=== PATIENT | female | born 2000 | race Caucasian/White ===

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

== ENCOUNTER 2021-11-13 09:33 | Emergency (ER) | payer OTHER, SELFPAY ==
[2021-11-13 09:35] VITALS: BP 99/64; PULSE 87; RESP 16; TEMP 36.3; O2SAT 99; BMI 21.0
--- NOTE | 2021-11-13 09:47 | CT_ITS ---
STUDY: CT SOFT TISSUE NECK WITH CONTRAST REASON FOR EXAM: Female, 21 years old. Pharyngitis. 3 day history of the enlarged cervical lymph nodes. RADIATION DOSAGE (If Supplied By Facility): CTDIvol = ( 10.92 ) mGy, DLP = ( 308.15 ) mGycm TECHNIQUE: The patient was scanned in a multi-detector CT scanner. High resolution transaxial imaging was performed following intravenous administration of IV 75mL [id number]-300. Sagittal and coronal images were reconstructed. Individualized dose optimization techniques were used for this CT. COMPARISON: None. FINDINGS: Normal bilateral parotid glands. 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 Normal bilateral parapharyngeal spaces. Normal bilateral carotid spaces. Normal bilateral sublingual and submandibular glands and spaces. Normal visualized nasopharynx. Normal retropharyngeal space. Normal perivertebral space. There is evidence of enlargement of the palatine tonsils bilaterally in keeping with tonsillitis. Narrowing of the oropharyngeal airway. There is slight image degradation due to patient movement although I suspect a 1.1 cm x 1.5 cm area of decreased attenuation in the deep aspect of the left tonsils as well as a similar appearing hypodensity in the deep aspect of the right tonsil measuring 1 cm x 0.8 cm. The visualized tongue, tongue base and oropharynx are normal. The visualized cervical lymph nodes (levels I-) are within normal size limits, and maintain normal morphology. There is no demonstrated solid or cystic mass lesion. There is no abnormal contrast enhancement. Normal epiglottis, bilateral vallecula and hypopharynx. The pre-epiglottic and paraglottic adipose spaces are normal. Normal visualized bilateral piriform sinuses, aryepiglottic folds, vocal cords, and arytenoid-cricoid articulations. Normal subglottic trachea. Normal bilateral lobes of the thyroid gland. Normal visualized pulmonary apices. Normal visualized paranasal sinuses. Normal visualized cervical spine. CT/Soft Tissue Neck WITH Contrast IMPRESSION: Findings suggestive of a bilateral pharyngeal tonsillitis with a possible early phlegmon formation deep to the tonsillar tissue. There is narrowing of the oropharyngeal airway Electronically Signed: Shar Joya MD at 10:32 EDT ,
--- NOTE | 2021-11-13 09:48 | EX.ED.DYSGE1 ---
HPI History of Present Illness Chief Complaint: General Illness Informant: patient and parent Onset/Context/Timing Onset: Days Context: Gradual Onset Current Severity: Moderate Maximum Severity: Moderate Narrative Narrative: Patient presents secondary to sore throat. She was ill with similar symptoms about a month ago. Recovered from that illness but then developed recurrent symptoms 2 days ago. She is been seen at the [facility] urgent care the past 2 days and had negative strep test both days. She was advised to come to the ER if not improving for CT scan. She denies fever or chills. No significant cough. Mother does raise concern that she has not been eating and drinking well does have a history of an eating disorder. [facility] Medical History Acute pharyngitis, unspecified History of eating disorder Home Medications amoxicillin-pot clavulanate 1 tab PO BID #20 tab 11/13/21 [Rx Last Taken Unknown] dexamethasone [Decadron] 6 mg PO DAILY #4 tab 11/13/21 [Rx Last Taken Unknown] naproxen [Naprosyn] 500 mg PO BID PRN #20 tab 11/13/21 [Rx Last Taken Unknown] Allergy/AdvReac Type Severity Reaction Status Date / Time No Known Allergies Allergy Verified 11/13/21 09:34 Social History Smoking Status: Never smoker alcohol intake: never ROS ROS ED Constitutional Constitutional ED: Denies chills or fever(s) Eyes Eyes: Denies change in vision ENT ENT ED: Reports sore throat; Denies rhinorrhea Cardiovascular Cardiovascular: Denies chest pain Respiratory/Chest Respiratory/Chest: Denies cough or dyspnea Gastrointestinal Gastrointestinal: Denies abdominal pain, nausea or vomiting Genitourinary Genitourinary ED: Denies dysuria Musculoskeletal Musculoskeletal: Denies back pain or neck pain Integumentary Denies rash Neurologic Neurologic: Reports headache(s); Denies weakness Allergic/Immunologic Allergic/Immunologic ED: Denies urticaria EXAM Physical Exam Const Vital Signs: 11/13/21 09:35 Temperature 97.4 F L Temperature Source Temporal Pulse Rate 87 Respiratory Rate 16 Blood Pressure 99/64 Blood Pressure Mean 75 Pulse Ox 99 Oxygen Delivery Method Room Air Positive well nourished and well developed General Appearance ED: well developed HEENT Reports moist mucous membranes HEENT Narrative: 3+ tonsils. No exudate. Uvula midline. Tolerating secretions well and speaks with a strong voice. Eyes PERRL and EOMs intact bilaterally Neck supple Neck Narrative: Bilateral anterior cervical lymphadenopathy. Resp normal respiratory effort and clear to auscultation bilaterally Cardio regular rate and regular rhythm GI normal to inspection, nondistended, normoactive bowel sounds and non-tender Palpation: soft Extremity normal to inspection Neuro oriented x3 Sensorium / Orientation: alert Psych mental status grossly normal Skin no rashes or lesions noted MDM MDM MDM Narrative Medical decision making narrative: Patient sent for CT scan of the neck with IV contrast. Patient given Toradol and Decadron. IV fluids ordered. Radiography Diagnostic Testing: Clinical Impression(s) from Imaging Studies Soft Tissue Neck CT 11/13/21 09:47 IMPRESSION: Findings suggestive of a bilateral pharyngeal tonsillitis with a possible early phlegmon formation deep to the tonsillar tissue. There is narrowing of the oropharyngeal airway Electronically Signed: Shar Joya MD at 10:32 EDT , Treatment and Re-Evaluation Narrative: CT scan reveals evidence of tonsillitis. Possible early phlegmon but no abscess. Evaluation patient resting comfortably. She continues to have strong voice and is tolerating secretions well. She will be treated with a course of Augmentin as well as p.o. Decadron. Return instructions provided. Discharge Plan Triage Chief Complaint: General Illness ED Provider: Farhana Diallo Dx/Rx/DC Orders Clinical Impression: Pharyngitis Instructions: ED Pharyngitis, Viral Prescriptions: New dexamethasone [Decadron] 6 mg tablet 6 mg PO DAILY Qty: 4 RF: 0 naproxen [Naprosyn] 500 mg tablet 500 mg PO BID PRN (Reason: pain) Qty: 20 RF: 0 amoxicillin-pot clavulanate 875-125 mg tablet 1 tab PO BID Qty: 20 RF: 0 Primary Care Provider: Kali Ye Referrals: Kali Ye MD [Primary Care Provider] - 1 Week if not improving Chiki Lares MD [STAFF PHYSICIAN] - As Needed Disposition Disposition: Home, Self Care
[2021-11-13] MEDS: 0.9% Normal Saline 1,000 ML 999 ML IV (10:02)
[2021-11-13] MEDS: Ketorolac 30 MG/ML Syringe IV (10:02)
[2021-11-13] MEDS: dexAMETHasone 10 MG/ML Vial IV (10:02)
[2021-11-13 11:23] VITALS: BP 126/71; PULSE 64; RESP 15; O2SAT 99
== END 2021-11-13 11:24 | disposition home or self-care (01) ==
PROVIDERS: Emergency Provider Emergency Medicine; PCP Pediatrics; Visit Provider Emergency Medicine
DX: J02.9 Acute pharyngitis, unspecified (principal)
CPT/HCPCS: 70491; 96361; 96374; 96375; 99283; J7030; Q9967; A4216